=== PATIENT | female | born 2000 | race African-American/Black ===

== ENCOUNTER 2022-07-09 21:03 | Inpatient (IN) ==
[2022-07-09] MEDS ORDERED: OXYTOCIN/LR 20 UNIT/1,000 ML BAG IV ONE (21:49)
[2022-07-09] MEDS ORDERED: CARBOPROST TROMETHAMINE 250 MCG/ML AMP IM PRN (21:49)
[2022-07-09] MEDS ORDERED: miSOPROStoL 200 MCG TABLET RECTAL PRN (21:49)
[2022-07-09] MEDS ORDERED: BUTORPHANOL 2 MG/ML VIAL IV PRN (21:49)
[2022-07-09] MEDS ORDERED: METHYLERGONOVINE 0.2 MG/1 ML AMP IM PRN (21:49)
[2022-07-09] MEDS ORDERED: TRANEXAMIC ACID 1,000 MG in SODIUM CHLORIDE 0.9% 100 ML IV PRN (21:49)
[2022-07-09 22:04] LABS: Bacteria,Urine Many /HPF (Few); Mucus,Urine Moderate /LPF (Occasional); RBC,Urine 7 /HPF (0-4); Squamous Epithelial Cell,Urine Many /HPF (0-10)
[2022-07-09] MEDS: LABETALOL 200 MG TABLET PO SCH (22:24)
[2022-07-09 22:27] LABS: Bilirubin,Urine Negative (Negative); Blood, Urine Trace mg/dL (Negative); Glucose,Urine (UA) Negative (Negative); Ketones,Urine Trace mg/dL (Negative); Nitrite,Urine Positive (Negative); Protein,Urine 30 mg/dL (Negative); Urine Appearance Clear (Clear); Urine Color Yellow (Yellow); Urine Specific Gravity >= 1.030 (1.001-1.035); Urine pH 6.5 (4.5-8.0)
[2022-07-09 22:37] LABS: Basophils % 0.1 % (0.0-0.8); Eosinophils # 0.1 10*3/uL (0.0-0.87); Eosinophils % 1.5 % (0.00-10.9); Hematocrit 37.2 VOL% (35.7-47.0); Hemoglobin 12.1 GM/DL (12.0-16.0); Immature Granulocytes % 0.3 %; Immature Granulocytes Absolute 0.02 #; Lymphocytes # 2.8 10*3/uL (1.4-4.0); Lymphocytes % 35.7 % (21.3-54.2); Mean Corpuscular HGB Conc 32.5 GM/DL (32-36); Mean Corpuscular Volume 89.6 FL (87-102); Monocytes # 0.5 10*3/uL (0.11-0.8); Monocytes % 6.7 % (1.7-12.7); Neutrophils % 55.7 % (38.7-73.9); Platelet Count 275 T/CUMM (130-400); Red Blood Count 4.15 MC/CUMM (3.8-5.5); Red Cell Distribution Width 13.2 % (9.3-17.3)
[2022-07-09 22:59] LABS: INR 0.9; PT Patient Result 10.5 SECS (10.1-12.1); Partial Thromboplastin Time 30.5 SECS (23.7-32.9)
[2022-07-09 23:07] LABS: Alanine Aminotransferase 15 U/L (13-56); Alkaline Phosphatase 147 U/L (45-117); Aspartate Amino Transferase 13 U/L (0-37); Bilirubin,Total < 0.39 MG/DL (0.20-1.00); Blood Urea Nitrogen 7 MG/DL (7-18); Calcium 9.7 MG/DL (8.5-10.1); Carbon Dioxide 23 MMOL/L (21-32); Chloride 108 MMOL/L (98-107); Glucose 79 MG/DL (74-106); Osmolality,Calculated 271.7 MOS/KG (273-304); Potassium 3.7 MMOL/L (3.5-5.1); Sodium 138 MMOL/L (136-145); Total Protein 7.8 G/DL (6.4-8.2); Uric Acid 4.3 MG/DL (2.6-6.0)
[2022-07-09 23:14] LABS: Protein/Creatinine Ratio,Urine 0.2 RATIO
[2022-07-10] MEDS: ONDANSETRON 4 MG/2 ML VIAL IV PRN ×2 (00:17→09:41)
[2022-07-10] MEDS: LACTATED RINGERS 1,000 ML IV SCH ×2 (07:48→15:14)
[2022-07-10] MEDS ORDERED: OXYTOCIN/LR 20 UNIT/1,000 ML BAG IV SCH (08:57)
[2022-07-10] MEDS: LABETALOL 200 MG TABLET PO SCH ×2 (09:00→20:10)
[2022-07-10] MEDS ORDERED: MEPERIDINE 25 MG/1 ML VIAL IV PRN (12:35)
[2022-07-10] MEDS ORDERED: CITRIC ACID/SODIUM CITRATE 30 ML UDCUP PO ONE (15:02)
[2022-07-10] MEDS ORDERED: NALOXONE 0.4 MG/ML VIAL IV PRN (15:02)
[2022-07-10] MEDS ORDERED: diphenhydrAMINE 50 MG/1 ML VIAL IV PRN ×2 (15:02)
[2022-07-10] MEDS ORDERED: ePHEDrine 50 MG/ML VIAL IV PRN (15:02)
[2022-07-10] MEDS ORDERED: FAMOTIDINE 20 MG/2 ML VIAL IV ONE (15:02)
[2022-07-10] MEDS ORDERED: fentaNYL 2 MCG/ROPIV 0.2% EPID 100 ML EPIDURAL SCH (15:30)
[2022-07-10 16:39] LABS: Bacteria,Urine Occasional /HPF (Few); Bilirubin,Urine Negative (Negative); Blood, Urine Trace mg/dL (Negative); Glucose,Urine (UA) Negative (Negative); Ketones,Urine >=160 mg/dL (Negative); Mucus,Urine Few /LPF (Occasional); Nitrite,Urine Positive (Negative); Protein,Urine Trace mg/dL (Negative); RBC,Urine 13 /HPF (0-4); Squamous Epithelial Cell,Urine Occasional /HPF (0-10); Urine Appearance Clear (Clear); Urine Color Yellow (Yellow); Urine Specific Gravity 1.032 (1.001-1.035)
[2022-07-10] MEDS ORDERED: SODIUM CHLORIDE 0.9% 0 ML IV ONE (18:18)
[2022-07-10] MEDS ORDERED: miSOPROStoL 200 MCG TABLET ONE (18:18)
[2022-07-10] MEDS ORDERED: TRANEXAMIC ACID 1,000 MG/10 ML VIAL ONE (18:18)
[2022-07-10] MEDS ORDERED: METHYLERGONOVINE 0.2 MG/1 ML AMP ONE (18:18)
[2022-07-10] MEDS ORDERED: CARBOPROST TROMETHAMINE 250 MCG/ML AMP IM ONE (18:19)
[2022-07-10] MEDS ORDERED: oxyCODONE/ACETAMINOPHEN 5-325 MG TABLET PO PRN (19:05)
[2022-07-10] MEDS ORDERED: ACETAMINOPHEN 325 MG TABLET PO PRN (19:05)
[2022-07-10] MEDS ORDERED: HYDROCORTISONE 2.5% RECTAL CREAM 30 GM TUBE TOP PRN (19:05)
[2022-07-10] MEDS ORDERED: ONDANSETRON 4 MG/2 ML VIAL IV PRN (19:05)
[2022-07-10] MEDS ORDERED: WITCH HAZEL PADS 100/JAR TOP PRN (19:05)
[2022-07-10] MEDS ORDERED: BISACODYL 10 MG SUPP RECTAL PRN (19:05)
[2022-07-10] MEDS ORDERED: MEASLES/MUMPS/RUBELLA VACCINE 0.5 ML VIAL SUBCUT ONE (19:05)
[2022-07-10] MEDS ORDERED: OXYTOCIN/LR 20 UNIT/1,000 ML BAG IV ONE (19:05)
[2022-07-10] MEDS ORDERED: RHO(D) IMMUNE GLOBULIN 300 MCG SYRINGE IM ONE (19:05)
[2022-07-10] MEDS ORDERED: BENZOCAINE 20%/MENTHOL 0.5% SPRAY 56 GM CAN TOP PRN (19:05)
[2022-07-10] MEDS ORDERED: DIPH/TET/ACEL PERT BOOSTER VACCINE 0.5 ML VIAL IM ONE (19:05)
[2022-07-10] MEDS ORDERED: LANOLIN 50% CREAM 0.3 OZ TUBE TOP PRN (19:05)
[2022-07-10 19:09] LABS: Cord Arterial Blood HCO3 19.1 MMOL/L
[2022-07-10 19:16] LABS: Cord Venous Blood HCO3 20.7 MMOL/L; Cord Venous Blood PCO2 46.4 MMHG; Cord Venous Blood PO2 28.4
[2022-07-10] MEDS: IBUPROFEN 800 MG TABLET PO PRN (21:41)
[2022-07-10] MEDS ORDERED: LABETALOL 200 MG TABLET PO SCH (22:00)
[2022-07-10] MEDS: oxyCODONE/ACETAMINOPHEN 5-325 MG TABLET PO PRN (23:00)
[2022-07-11 04:59] LABS: Basophils % 0.2 % (0.0-0.8); Eosinophils % 0.1 % (0.00-10.9); Hematocrit 31.7 VOL% (35.7-47.0); Hemoglobin 10.2 GM/DL (12.0-16.0); Immature Granulocytes % 0.4 %; Immature Granulocytes Absolute 0.05 #; Lymphocytes # 2.5 10*3/uL (1.4-4.0); Mean Corpuscular HGB Conc 32.2 GM/DL (32-36); Mean Corpuscular Volume 91.4 FL (87-102); Mean Platelet Volume 10.2 FL (9.6-12.0); Monocytes % 7.6 % (1.7-12.7); Neutrophils % 72.7 % (38.7-73.9); Platelet Count 239 T/CUMM (130-400); Red Blood Count 3.47 MC/CUMM (3.8-5.5); Red Cell Distribution Width 13.3 % (9.3-17.3)
[2022-07-11] MEDS: DOCUSATE SODIUM 100 MG CAPSULE PO SCH ×3 (09:31→20:34)
[2022-07-11] MEDS: LABETALOL 200 MG TABLET PO SCH ×2 (09:31→20:34)
[2022-07-11] MEDS: oxyCODONE/ACETAMINOPHEN 5-325 MG TABLET PO PRN ×2 (09:35→14:30)
[2022-07-11] MEDS ORDERED: RHO(D) IMMUNE GLOBULIN 300 MCG SYRINGE IM ONE (13:25)
[2022-07-11] MEDS: IBUPROFEN 800 MG TABLET PO PRN (18:05)
[2022-07-11] MEDS: SULFAMETHOX/TRIMETHOPRIM 800-160 MG TABLET PO SCH (20:36)
[2022-07-12] MEDS: oxyCODONE/ACETAMINOPHEN 5-325 MG TABLET PO PRN (00:32)
[2022-07-12] MEDS: IBUPROFEN 800 MG TABLET PO PRN (05:22)
[2022-07-12] MEDS: DOCUSATE SODIUM 100 MG CAPSULE PO SCH (08:54)
[2022-07-12] MEDS: LABETALOL 200 MG TABLET PO SCH (08:55)
[2022-07-12 09:42] VITALS: BP 132/75
[2022-07-12] MEDS: SULFAMETHOX/TRIMETHOPRIM 800-160 MG TABLET PO SCH (09:55)
== END 2022-07-12 12:20 | disposition home or self-care (01) | DRG 560 ==
LOC: N.LD 21:03 → N.OB 07-10 20:55
PROVIDERS: ADMIT Obstetrics & Gynecology; ATTEND Obstetrics & Gynecology